=== PATIENT | female | born 1985 | race Caucasian/White ===

== ENCOUNTER 2016-08-31 18:33 | Emergency (ER) | payer OTHER ==
[~2016-08-31] VITALS: Ht 160 cm; Wt 86.2 kg
--- NOTE | 2016-08-31 18:47 | ED.ADGEN ---
Adult General Chief Complaint Chief Complaint Abdominal pain HPI HPI Patient is a 31 year old female who presents with superpubic pain. She states she has an IUD in that she's had since March 2014 is had no issues with it and then today started having dysuria and abdominal pain. She states she tried to feel for her IUD and cannot feel the string. She called her OB who wanted to be evaluated to make sure IUD use in the right spot. She states the pains been constant in the suprapubic area nothing makes it better or worse. She denies any vaginal bleeding or discharge. Review of Systems Review of Systems Constitutional: Denies fever or chills [] Eyes: Denies change in visual acuity, redness, or eye pain [] HENT: Denies nasal congestion or sore throat [] Respiratory: Denies cough or shortness of breath [] Cardiovascular: No additional information not addressed in HPI [] GI: Positive for abdominal pain, denies any nausea, vomiting, bloody stools or diarrhea [] : Denies dysuria or hematuria [] Musculoskeletal: Denies back pain or joint pain [] Integument: Denies rash or skin lesions [] Neurologic: Denies headache, focal weakness or sensory changes [] Endocrine: Denies polyuria or polydipsia [] Current Medications Current Medications Current Medications Medications (Trade) Dose Ordered Sig/Richard Start Time Stop Time Status Last Admin Dose Admin Ibuprofen (Motrin) 600 mg 1X ONCE 08/31/16 21:45 08/31/16 21:46 Allergies Allergies Allergies Coded Allergies Type Severity Reaction Last Updated Verified adhesive tape Allergy Severe Rash 08/31/16 Yes Physical Exam Physical Exam Constitutional: Well developed, well nourished, no acute distress, non-toxic appearance. [] HENT: Normocephalic, atraumatic, bilateral external ears normal, oropharynx moist, no oral exudates, nose normal. [] Eyes: PERRLA, EOMI, conjunctiva normal, no discharge. [] Neck: Normal range of motion, no tenderness, supple, no stridor. [] Cardiovascular:Heart rate regular rhythm, no murmur [] Lungs & Thorax: Bilateral breath sounds clear to auscultation [] Abdomen Bowel sounds normal, soft, no tenderness, no masses, no pulsatile masses. [] Pelvic Exam: Shipper Receiver present Abdomen: Nontender External Genitalia: Normal Skin Speculum: Normal vaginal mucosa, normal cervical discharge, could not visualize the IUD string however I could only visualize part of her cervix, cervix is mildly tender to palpation, no bleeding noted Bimanual: No adnexal masses or tenderness, No CMT: Skin: Warm, dry, no erythema, no rash. [] Back: No tenderness, no CVA tenderness. [] Extremities: No tenderness, no cyanosis, no clubbing, ROM intact, no edema. [] Neurologic: Alert and oriented X 3, normal motor function, normal sensory function, no focal deficits noted. [] Psychologic: Affect normal, judgement normal, mood normal. [] Current Patient Data Vital Signs Vital Signs Date Time Temp Pulse Resp B/P (MAP) Pulse Ox O2 Delivery O2 Flow Rate FiO2 08/31/16 18:40 98.3 78 18 98 Lab Results Laboratory Tests Test 08/31/16 19:20 08/31/16 19:31 Urine Collection Type Unknown Urine Color Straw Urine Clarity Clear Urine pH 6.0 Urine Specific Webster 1.010 Urine Protein Neg (NEG-TRACE) Urine Glucose (UA) Neg mg/dL (NEG) Urine Ketones (Stick) Neg mg/dL (NEG) Urine Blood Trace (NEG) Urine Nitrite Neg (NEG) Urine Bilirubin Neg (NEG) Urine Urobilinogen Dipstick 0.2 mg/dL (0.2 mg/dL) Urine Leukocyte Esterase Neg (NEG) Urine RBC Occ /HPF (0-2) Urine WBC 0 /HPF (0-4) Urine Squamous Epithelial Cells Occ /LPF Urine Bacteria 0 /HPF (0-FEW) POC Urine HCG, Qualitative hcg negative (Negative) Microbiology 08/31/16 Wet Prep - Final, Complete Microbiology 08/31/16 Wet Prep - Final, Complete EKG EKG [] Radiology/Procedures Radiology/Procedures [address] [address] IMAGING REPORT Signed PATIENT: ANJEL MENJIVAR ACCOUNT: [id number] : 1985 LOCATION: ER AGE: 31 SEX: F EXAM STATUS: REG ER ORD. PHYSICIAN: JENIFFER LEE MD REASON: abd pain with IUD PROCEDURE: PELVIS COMPLETE Pelvic and transvaginal ultrasound. HISTORY: Pelvic pain, IUD since 2014, cervical pain COMPARISON: None FINDINGS: Multiple transabdominal sonographic images of the pelvis are submitted. Pelvic structures are poorly visualized. Transvaginal ultrasound: Multiple transvaginal sonographic images of the pelvis are submitted. There is echogenic focus in the endometrial cavity compatible with presence of IUD. There is trace quantity of fluid in the cervical canal. Uterus measured 9.1 x 5 x 4.4 cm. Endometrium measures 0.52 cm. Right ovary measures 3. 2 x 2 by 1.8 cm. Left ovary measured 3.6 x 2.1 x 1.9 cm. There is normal low resistance vascularity of both ovaries. There are follicles of the ovaries bilaterally. There is a focus of heterogeneous echogenicity of the left ovary up to 1.9 x 1.6 x 1.4 cm, some internal echoes present. No significant free fluid is demonstrated. IMPRESSION: 1. IUD appears appropriately positioned. There is a small amount of nonspecific fluid in the cervical canal. 2. There is a complex cyst of the left ovary up to 1.9 cm, no free fluid demonstrated. Electronically signed by: Tono Gamez MD (08/31/2016 8:16 PM) DICTATED AND SIGNED BY: TONO GAMEZ MD DATE: 08/31/162013 CC: JENIFFER LEE MD; MICHELLE SCHULTE MD ~ RUN DATE: 08/31/16 [facility] *LIVE* PAGE 1 RUN TIME: 2048 Specimen Inquiry PATIENT: ANJEL MENJIVAR ACCT: [id number] LOC: ER U : [id number] AGE/SX: 31/F ROOM: REG : 08/31/[address]: JENIFFER LEE MD : 1985 BED: DIS : STATUS: REG ER TLOC: SPEC #: [id number] JORGE: 08/31/16 STATUS: COMP REQ #: [id number] RECD: 08/31/[address] [facility] [address]: JENIFFER LEE MD SOURCE: VAGINAL ENTR: 08/31/[address] [facility] [address]: MICHELLE SCHULTE MD SPDESC: ORDERED: WET PREP COMMENTS: Has specimen been collected/obtained? Y Procedure Result WET PREP Final YEAST NONE SEEN TRICHOMONAS NONE SEEN CLUE CELLS NONE SEEN WBCS OCCASIONAL RBCS NO RBCS SEEN SQUAMOUS EPS OCCASIONAL END OF REPORT Course & Med Decision Making Course & Med Decision Making Pertinent Labs and Imaging studies reviewed. (See chart for details) On pelvic exam I cannot visualize her entire cervix I did use a larger speculum and repeated exam I could visualize part of it however cannot appreciate the entire os or the string for the IUD. She is mildly tender around the cervix and perhaps a string is followed back irritating the vaginal wall. I do not appreciate any bleeding or other concerns during the exam. Ultrasound shows the IUD to be in "appropriate" position. Spoke with Dr. Rasmussen regarding her exam, UA. He is okay with her being discharged home with pain meds and anti- inflammatories. I spoke in detail to the patient and explained to her that the IUD is in her endometrium and the radiologist who feels the IUD is in appropriate position. She is to call Dr. Silverio in the morning and follow-up at the office. She is return back to ER if she has any additional pains, vaginal bleeding, fevers or other concerns. I did write her prescription for 10 tablets of [place] in case her pain gets worse. She was given 600 mg ibuprofen prior to being discharged. Final Impression Final Impression Abdominal pain Problems: Dragon Disclaimer Dragon Disclaimer This electronic medical record was generated, in whole or in part, using a voice recognition dictation system. JENIFFER LEE MD August 31, 2016 18:47
--- NOTE | 2016-08-31 20:19 | RAD ---
Pelvic and transvaginal ultrasound. HISTORY: Pelvic pain, IUD since 2013, cervical pain COMPARISON: None FINDINGS: Multiple transabdominal sonographic images of the pelvis are submitted. Pelvic structures are poorly visualized. Transvaginal ultrasound: Multiple transvaginal sonographic images of the pelvis are submitted. There is echogenic focus in the endometrial cavity compatible with presence of IUD. There is trace quantity of fluid in the cervical canal. Uterus measured 9.1 x 5 x 4.4 cm. Endometrium measures 0.52 cm. Right ovary measures 3. 2 x 2 by 1.8 cm. Left ovary measured 3.6 x 2.1 x 1.9 cm. There is normal low resistance vascularity of both ovaries. There are follicles of the ovaries bilaterally. There is a focus of heterogeneous echogenicity of the left ovary up to 1.9 x 1.6 x 1.4 cm, some internal echoes present. No significant free fluid is demonstrated. IMPRESSION: 1. IUD appears appropriately positioned. There is a small amount of nonspecific fluid in the cervical canal. 2. There is a complex cyst of the left ovary up to 1.9 cm, no free fluid demonstrated. Electronically signed by: Chucho Wilkinson MD (08/31/2016 8:16 PM)
[2016-08-31 20:29] LABS: BILIRUBIN,URINE NEG (NEG); CLARITY,URINE CLEAR; COLOR,URINE STRAW; GLUCOSE,URINE NEG (NEG)
[2016-08-31 20:30] LABS: BACTERIA,URINE 0 /HPF (0-FEW); NITRITE,URINE NEG (NEG); RBC,URINE OCC /HPF (0-2); SQUAMOUS EPITHELIAL CELL,UR OCC /LPF; UROBILINOGEN,URINE 0.2 mg/dL (0.2 mg/dL); WBC,URINE 0 /HPF (0-4)
[2016-08-31 21:00] VITALS: BP 126/52
[2016-08-31] MEDS ORDERED: HYDR-971 PO (21:08)
[2016-08-31] MEDS ORDERED: IBUPROFEN 600 MG TABLET. PO ONE (21:45)
== END 2016-08-31 21:33 | disposition home or self-care (01) ==
LOC: ER 18:33
DX: R10.30 Lower abdominal pain, unspecified (principal); R30.0 Dysuria; Z91.048 Other nonmedicinal substance allergy status
CPT/HCPCS: 36415; 76856; 81001; 81025; 99285; Q0111

== ENCOUNTER 2019-03-21 19:08 | Emergency (ER) | payer BC, OTHER ==
[~2019-03-21] VITALS: Ht 160 cm; Wt 103.0 kg
[~2019-03-21 19:08] MED LIST: HYDR-3165 PO
[2019-03-21 19:15] VITALS: BP 108/77
--- NOTE | 2019-03-21 19:40 | PHYS DOC ---
Past History Past Medical History: Ovarian Cyst Past Surgical History: No Surgical History Alcohol Use: None Drug Use: None Adult General Chief Complaint Chief Complaint: FLU SYMPTOM HPI HPI Patient is a 33-year-old female who presents to the emergency department for evaluation of flulike symptoms. She states she is having nasal congestion, cough, sore throat, and myalgias. She has had the symptoms since Tuesday. [facility], had negative strep swab, but a positive flu swab. She was started on Tamiflu along with Tessalon, and other medications. She states her symptoms persist. She is here with her children as well, both with sore throats. There are no alleviating or exacerbating factors to her symptoms otherwise. Review of Systems Review of Systems Constitutional: Denies reports fever, aches, and myalgias. Denies lethargy Or chills [] Eyes: Denies change in visual acuity, redness, or eye pain [] HENT: Reports nasal congestion and sore throat[] Respiratory: Denies productive cough or shortness of breath [] Cardiac: The patient denies any shortness of breath, chest pain, palpitations, or orthopnea GI: Denies abdominal pain, nausea, vomiting, bloody stools or diarrhea [] : Denies dysuria or hematuria [] Musculoskeletal: Reports back pain and myalgias. Denies arthralgias. [] Integument: Denies rash or skin lesions [] Neurologic: Denies headache, focal weakness or sensory changes [] Endocrine: Denies polyuria or polydipsia [] All other systems were reviewed and found to be within normal limits, except as documented in this note. Allergies Allergies Allergies Coded Allergies Type Severity Reaction Last Updated Verified adhesive tape Allergy Severe Rash 08/31/16 Yes Physical Exam Physical Exam PHYSICAL EXAM: CONSTITUTIONAL: Well developed, well nourished HEAD: normocephalic, atraumatic EENT: PERRL, EOMI. Conjunctivae normal color, sclerae non-icteric; moist mucous membranes. NECK: Supple, non-tender; no meningismus. LUNGS: Lungs CTA, breathing even and unlabored. Normal air movement. HEART: Regular rate and rhythm, no murmur CHEST: No deformity; non-tender ABDOMEN: The abdomen is soft, and non-tender, no masses or bruits. EXTREM: Normal ROM; no deformity, no calf tenderness. Normal pulses palpable in all extremities. There is no pedal edema. SKIN: No rash; no diaphoresis NEURO: Alert; normal speech and cognition; CN's grossly intact; strength grossly intact without focal deficit. BACK: No CVA TTP. EKG EKG [] Radiology/Procedures Radiology/Procedures [] Course & Med Decision Making Course & Med Decision Making I discussed expectant management with the patient, continued use of NSAIDs, antitussives, and antipyretics, the need for close follow-up and return precautions. Dragon Disclaimer Dragon Disclaimer This electronic medical record was generated, in whole or in part, using a voice recognition dictation system. Departure Departure: Impression: Primary Impression: Influenza Disposition: 01 HOME, SELF-CARE Condition: STABLE Patient Instructions: Influenza Facts, Influenza, Adult TIMOTHYTKALLIE MD Mar 21, 2019 19:40
== END 2019-03-21 20:08 | disposition home or self-care (01) ==
LOC: ER 19:08
DX: J11.1 Influenza due to unidentified influenza virus with other respiratory manifestations (principal); Z88.8 Allergy status to other drugs, medicaments and biological substances
CPT/HCPCS: 99281

== ENCOUNTER 2021-05-30 10:28 | Emergency (ER) | payer BC ==
[~2021-05-30] VITALS: Ht 160 cm; Wt 106.6 kg
[2021-05-30 10:28] VITALS: BP 122/75
--- NOTE | 2021-05-30 11:06 | PHYS DOC ---
Past History Past Medical History: No Pertinent History (ANDREINA FALLON APRN) Past Surgical History: No Surgical History Additional Past Surgical Histo: ovarian cyst removal (ANDREINA FALLON APRN) Alcohol Use: None Drug Use: None (ANDREINA FALLON APRN) General Adult EDM: Chief Complaint: CONGESTION HPI: HPI: Patient is a 35-year-old female who presents to the emergency department with a brown productive cough for the last 3 weeks with nasal congestion. Mother denies fever, shortness of breath, body aches, pain, chest pain. Patient has been tested for Covid and has been negative. She has never been tested for influenza. Patient has a history of diabetes. Her vital signs are stable and she is in no acute distress. (ANDREINA FALLON APRN) Review of Systems: Review of Systems: Constitutional: negative unless reported in HPI Eyes: negative unless reported in HPI HENT: negative unless reported in HPI Respiratory: negative unless reported in HPI Cardiovascular: negative unless reported in HPI GI: negative unless reported in HPI : negative unless reported in HPI Musculoskeletal: negative unless reported in HPI Integument: negative unless reported in HPI Neurologic: negative unless reported in HPI Endocrine: negative unless reported in HPI Lymphatic: negative unless reported in HPI Psychiatric: negative unless reported in HPI (ANDREINA FALLON APRN) Allergies: Allergies: Allergies Coded Allergies Type Severity Reaction Last Updated Verified adhesive tape Allergy Severe Rash 08/31/16 Yes (ANDREINA FALLON APRN) Physical Exam: PE: Constitutional: Well developed, well nourished, no acute distress, non-toxic appearance. [] HENT: Normocephalic, atraumatic, bilateral external ears normal, oropharynx moist, no oral exudates, nose normal. [] Eyes: PERRL, EOMI, conjunctiva normal, no discharge. [] Neck: Normal range of motion, no tenderness, supple, no stridor. [] Cardiovascular:Heart rate regular rhythm, no murmur [] Lungs & Thorax: Wheezing noted throughout Abdomen: Bowel sounds normal, soft, no tenderness, obese, no masses, no pulsatile masses. [] Skin: Warm, dry, no erythema, no rash. [] Back: Normal range of motion Extremities: No tenderness, no cyanosis, no clubbing, ROM intact, no edema. [] Neurologic: Alert and oriented X 3, normal motor function, normal sensory function, no focal deficits noted. [] Psychologic: Affect normal, judgement normal, mood normal. [] (ANDREINA FALLON APRN) Current Patient Data: Labs: Laboratory Tests Test 05/30/21 11:08 05/30/21 11:28 Influenza Type A (Rapid) Negative Influenza Type B (Rapid) Negative SARS-CoV-2 Antigen (Rapid) Negative Bedside Urine HCG, Qualitative hcg negative (ANDREINA FALLON APRN) EKG: EKG: [] (ANDREINA FALLON APRN) Radiology/Procedures: Radiology/Procedures: []PROCEDURE: CHEST PA & LATERAL Chest PA and lateral: Reason for examination: Cough The heart size is normal. Mediastinum is unremarkable. Lung [place] are clear. No acute bony abnormalities are seen. Impression: No acute cardiopulmonary disease. Electronically signed by: Rand Collins MD (05/30/2021 12:05 PM) [id number] DICTATED AND SIGNED BY: RAND COLLINS MD DATE: 05/30/21 1204 CC: ANDREINA FALLON APRN; MARTÍNEZ MANZANO DO ~MTH0 0 (ANDREINA FALLON APRN) Heart Score: C/O Chest Pain: No Risk Factors: Risk Factors: DM, Current or recent (<one month) smoker, HTN, HLP, family history of CAD, obesity. Risk Scores: Score 0 - 3: 2.5% MACE over next 6 weeks - Discharge Home Score 4 - 6: 20.3% MACE over next 6 weeks - Admit for Clinical Observation Score 7 - 10: 72.7% MACE over next 6 weeks - Early Invasive Strategies (ANDREINA FALLON APRN) Course & Med Decision Making: Course & Med Decision Making Pertinent Labs and Imaging studies reviewed. (See chart for details) [] Patient presents to the emergency department today for a productive cough with nasal congestion that started 3 weeks ago. Patient has had negative Covid testing. Patient be tested for influenza and have a chest x-ray. Chest x-ray did not show any acute findings. Negative Covid and flu testing. Patient will be discharged home with cough medication and an albuterol inhaler as she is wheezy. Patient's vital signs are stable and she is in no acute distress. I discussed with patient all findings and diagnostic testing as well as the need to follow-up with PCP for further evaluation and treatment or return to the ER if any new or worsening symptoms. Strict return precautions were also discussed at length. Patient voiced understanding and agreement with the plan. Patient is hemodynamically stable at the time of disposition. (ANDREINA FALLON APRN) Course & Med Decision Making I was the Attending physician on the above date of service of this patient. This patient was evaluated, examined, treated, and dispositioned from the emergency department by the mid-level practitioner. Although I was working at the time , no assistance was requested. Electronically signed, David Guzman DO (DAVID GUZMAN DO) Yumiko Disclaimer: Yumiko Disclaimer: This electronic medical record was generated, in whole or in part, using a voice recognition dictation system. (ANDREINA FALLON APRN) Departure Departure: Impression: Primary Impression: Cough Disposition: HOME / SELF CARE / HOMELESS Condition: GOOD Referrals: MARTÍNEZ MANZANO DO (PCP) Patient Instructions: Cough, Adult Additional Instructions: You were seen in the emergency department today for cough. Your influenza and Covid testing were negative. Your chest x-ray showed no acute findings. You are being discharged home with cough medication and albuterol inhaler that you can use when you are short of breath. Follow-up with your primary care provider on Tuesday regarding your ER visit. Return to the emergency department if you develop worsening of your cough, shortness of breath, chest pain, high fevers refractory to treatment, weakness, intractable nausea or vomiting. Scripts Benzonatate (BENZONATATE) 100 Mg Capsule 1 CAP PO TID for cough for 7 Days, #21 CAP 0 Refills Prov: ANDREINA FALLON APRN 05/30/21 Albuterol Sulfate (PROAIR HFA INHALER) 8.5 Gm Hfa.aer.ad 2 PUFF IH PRN Q4-6HRS PRN for wheezing for 21 Days, #1 INHALER 0 Refills as needed for wheezing Prov: ANDREINA FALLON APRN 05/30/21 ANDREINA FALLON APRN May 30, 2021 11:06 DAVID GUZMAN DO May 30, 2021 15:08
--- NOTE | 2021-05-30 12:07 | RAD ---
Chest PA and lateral: Reason for examination: Cough The heart size is normal. Mediastinum is unremarkable. Lung westbrook are clear. No acute bony abnormali ties are seen. Impression: No acute cardiopulmonary disease. Electronically signed by: Rand Olson MD (05/30/2021 12:05 PM) [id number]
[2021-05-30 12:36] LABS: INFLUENZA A PATIENT NEGATIVE (NEGATIVE); INFLUENZA B PATIENT NEGATIVE (NEGATIVE)
[2021-05-30] MEDS ORDERED: BENZ-8 PO (12:43)
[2021-05-30] MEDS ORDERED: ALBU2.5V8 IH (12:43)
== END 2021-05-30 13:05 | disposition home or self-care (01) ==
LOC: ER 10:28
DX: R05.9 Cough, unspecified (principal); R09.81 Nasal congestion; Z20.822 Contact with and (suspected) exposure to COVID-19; Z88.8 Allergy status to other drugs, medicaments and biological substances
CPT/HCPCS: 71046; 81025; 87428; 99284